=== PATIENT | female | born 1940 | race Hispanic/Latino ===

== ENCOUNTER 2023-04-30 06:35 | Day surgery (SDC) | payer MEDICARE ==
[2023-04-29 10:49] LABS: BASOPHILS # (AUTO) 0.06 K/uL (0.00-0.20); BASOPHILS % (AUTO) 1.2 % (0.0-5.0); EOSINOPHILS # (AUTO) 0.38 K/uL (0.00-0.70); EOSINOPHILS % (AUTO) 7.6 % (0.0-8.0); HEMATOCRIT 35.1 % (36-48); IMMATURE GRANULOCYTE ABSOLUTE 0.01 K/uL (0-1); LYMPHOCYTES # (AUTO) 1.5 K/uL (1.0-4.8); MEAN CORPUSCULAR HEMOGLOBIN 30.9 pg (27.0-33.0); MEAN CORPUSCULAR VOLUME 93.4 fL (79-99); MONOCYTES # (AUTO) 0.5 K/uL (0.1-1.0); MONOCYTES % (AUTO) 10.8 % (3.0-13.0); NEUTROPHILS # (AUTO) 2.6 K/uL (1.8-7.7); NEUTROPHILS % (AUTO) 51.2 % (40.0-77.0); PLATELET COUNT (AUTO) 310 K/uL (130-400); RED BLOOD CELL COUNT(AUTO) 3.76 MIL/uL (4.00-5.50); RED CELL DISTRIBUTION WIDTH 12.6 % (11.0-15.5)
[2023-04-29 11:01] VITALS: BP 150/70; PULSE 54; RESP 18
[2023-04-29 11:10] LABS: CREATININE 1.2 mg/dL (0.5-1.5); POTASSIUM 4.5 mmol/L (3.5-5.1)
[2023-04-29 11:27] LABS: B-TYPE NATRIURETIC PEPTIDE 69 pg/mL (0-100)
[2023-04-29 11:31] LABS: ADD UA MICROSCOPIC YES
[2023-04-29 11:40] LABS: APPEARANCE,URINE CLOUDY (CLEAR); BACTERIA,URINE MANY /HPF (None Seen); BILIRUBIN,URINE NEGATIVE (NEGATIVE); COLOR,URINE LIGHT-YELLOW (YELLOW); GLUCOSE, URINE (UA) NEGATIVE (NEGATIVE); KETONES,URINE NEGATIVE (NEGATIVE); LEUKOCYTE ESTERASE ,URINE 500 Leu/uL (NEGATIVE); MUCUS,URINE RARE LPF (None Seen); NITRATE,URINE 2+ (NEGATIVE); OCCULT BLOOD,URINE NEGATIVE (NEGATIVE); PH,URINE 5.5 (5.0-8.0); PROTEIN,URINE NEGATIVE (NEGATIVE); SQUAMOUS EPITHELIAL CELL,UR RARE /HPF (0-2); UROBILINOGEN,URINE 0.2 mg/dL (0.2-1.0); WBC CLUMP FEW /HPF (0-1); WBC,URINE 51-100 /HPF (0-1)
[2023-04-29 11:46] LABS: INR 1.01 (0.85-1.15); PROTHROMBIN TIME 11.7 SEC (9.6-11.6)
[2023-04-29 11:47] LABS: PARTIAL THROMBOPLASTIN TIME 29.8 SEC (26.3-35.5)
[2023-04-30] VITALS (8 sets, daily range): BP systolic 129–172; BP diastolic 42–63; PULSE 52–59; RESP 10–14
[~2023-04-30] VITALS: Ht 157.5 cm; Wt 71.7 kg
[~2023-04-30 06:35] MED LIST: AEC81 PO; AMLO-257 PO; CARV3.12 PO; CLOP75TA32 PO; CYCL5TAB PO; DULO30CA52 PO; GABA300C PO; GEMF600T89 PO; LEVO25CA4 PO; NITR0.4T50 SL; OLME-9 PO; TRAM50TA4 PO
[2023-04-30] MEDS ORDERED: 0.9%NACL 1000ML 1,000 ML IV ONE (07:33)
[2023-04-30] MEDS ORDERED: LIDOCAINE HCL 400MG/20ML VIAL ONE (08:28)
[2023-04-30] MEDS ORDERED: FENTANYL CITRATE PF 50 MCG/1 ML 2ML VIAL ONE (08:28)
[2023-04-30] MEDS ORDERED: HEPARIN 10,000 UNIT/10ML (1,000 UNIT/ML) VIAL ONE (08:29)
[2023-04-30] MEDS ORDERED: MIDAZOLAM HCL 1 MG/ML 2ML VIAL ONE ×2 (08:29→09:18)
[2023-04-30] MEDS ORDERED: IOHEXOL 350 MG/ML 100ML INFUS..BTL IV ONE (08:29)
[2023-04-30] MEDS ORDERED: VERAPAMIL HCL 2.5 MG/ML VIAL ONE (08:29)
[2023-04-30] MEDS ORDERED: ATROPINE 1MG SYG IVP ONE (08:32)
[2023-04-30] MEDS ORDERED: IOHEXOL-350 50ML VIAL IV ONE (09:32)
[2023-04-30] MEDS ORDERED: HYDRALAZINE 20MG/ML VIAL ONE (09:46)
[2023-04-30] MEDS ORDERED: 0.9%NACL 1000ML 1,000 ML IV SCH (10:00)
[2023-04-30] MEDS ORDERED: DEXTROSE 50%-WATER 50 ML DISP.SYRIN IV PRN (10:00)
[2023-04-30] MEDS ORDERED: GLUCAGON 1MG KIT 1 MG ML IM PRN (10:00)
[2023-04-30] MEDS ORDERED: ACETAMINOPHEN 500 MG TABLET ONE (11:17)
== END 2023-04-30 13:05 | disposition home or self-care (01) ==
LOC: CLH 06:35 → DAH 06:35 → CLH 13:05
PROVIDERS: ATTEND Student in an Organized Health Care Education/Training Program
DX: I25.118 Atherosclerotic heart disease of native coronary artery with other forms of angina pectoris (principal); I10 Essential (primary) hypertension; E78.5 Hyperlipidemia, unspecified; E03.9 Hypothyroidism, unspecified; Z79.01 Long term (current) use of anticoagulants; Z79.899 Other long term (current) drug therapy; Z88.0 Allergy status to penicillin; Z72.89 Other problems related to lifestyle; Z79.890 Hormone replacement therapy
CPT/HCPCS: 80048; 83880; 85025; 85610; 85730; 87088; 81001; 36415; 71045; 93005; 93458; 87077; 87186; C1887; C1769; C1894; A4649; J3010; J3490 ×2; J7030; J0360; J1644 ×2; J2250 ×2; Q9967 ×2; A4215; A4222; A4221; A4663; A4216; A4606; Q9965; A4223 ×3; 96360; 96361; 99156; 99157; J0461